=== PATIENT | male | born 1965 | race American Indian/Alaskan Native ===

== ENCOUNTER 2017-07-04 22:28 | Emergency (ER) | payer SELFPAY ==
[2017-07-04 22:49] VITALS: BP 121/74
--- NOTE | 2017-07-05 04:05 | XRay Report ---
FINAL REPORT EXAM: XR SPINE THORACIC 2V HISTORY: fall thoracic pain TECHNIQUE: Four views of the cervical spine were obtained. FINDINGS: There is mild narrowing of the disc in the thoracic spine. There is no evidence of fracture. The alignment appears normal. The soft tissues are unremarkable. 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 No evidence of fracture.
--- NOTE | 2017-07-05 05:28 | Emergency Department Report ---
ED Back Pain/Injury HPI - General Chief Complaint: Back Pain/Injury Stated Complaint: BACK PAIN Time Seen by Provider: 07/05/17 05:19 Source: patient Limitations: No Limitations - History of Present Illness Initial Comments: Patient is a 52-year-old -Citizen Of [place] male that presents for low back pain status post slip and twist for 5 days ago patient states he did not fall but did pull a muscle in his back pain described as 5/10 aching pulling exacerbated by movement and bending there is no numbness no tingling or paresthesia no loss of decrease in bowel or bladder function. MD Complaint: back pain, back injury Onset/Timin -: days(s) Similar Symptoms Previously: Yes Place: home Radiation: left leg Severity: moderate Severity scale (0 -10): 4 Quality: aching Consistency: intermittent Improves With: other (rest ) Worsens With: movement, other (bending twisting ) Context: turning/twisting, other (slipped on ice ) Associated Symptoms: denies: confusion, weakness, chest pain, numbness, difficulty walking, cough, difficulty urinating, diaphoresis, incontinence, fever/chills, constipation, headaches, abdominal pain, loss of appetite, malaise , nausea/vomiting, rash, seizure, shortness of breath, syncope - Related Data Home Medications Medication Instructions Recorded Confirmed Last Taken Docusate Sodium [Colace] 100 mg PO BID PRN 06/04/15 06/04/15 Unknown metFORMIN [Glucophage] 500 mg PO BID 06/04/15 06/04/15 Unknown Previous Rx's Medication Instructions Recorded Last Taken Type Ibuprofen [Motrin] 800 mg PO Q8HR PRN #60 tablet 06/04/15 Unknown Rx traMADol [Ultram] 50 mg PO Q6HR PRN #14 tablet 06/04/15 Unknown Rx Cyclobenzaprine [Flexeril] 10 mg PO BID PRN #20 tablet 07/05/17 Unknown Rx Menthol/Camphor [[place] 1 applicatio TP BID PRN #1 tube 07/05/17 Unknown Rx Ointment] Naproxen 500 mg PO BID PRN #30 tablet 07/05/17 Unknown Rx Allergies Allergy/AdvReac Type Severity Reaction Status Date / Time No Known Allergies Allergy Unverified 06/04/15 19:53 ED Review of Systems ROS: Stated complaint: BACK PAIN Other details as noted in HPI Constitutional: denies: chills, fever Eyes: denies: eye pain, eye discharge, vision change ENT: denies: ear pain, throat pain Respiratory: denies: cough, shortness of breath, wheezing Cardiovascular: denies: chest pain, palpitations Endocrine: no symptoms reported Gastrointestinal: denies: abdominal pain, nausea, diarrhea Genitourinary: denies: urgency, dysuria Musculoskeletal: back pain, arthralgia, myalgia. denies: joint swelling Skin: denies: rash, lesions Neurological: denies: headache, weakness, paresthesias Psychiatric: denies: anxiety, depression Hematological/Lymphatic: denies: easy bleeding, easy bruising ED Past Medical Hx - Past Medical History Hx Diabetes: Yes - Surgical History Additional Surgical History: hernia, left ankle and hand - Social History Smoking Status: Never Smoker Substance Use Type: Alcohol - Medications Home Medications: Home Medications Medication Instructions Recorded Confirmed Last Taken Type Docusate Sodium [Colace] 100 mg PO BID PRN 06/04/15 06/04/15 Unknown History Ibuprofen [Motrin] 800 mg PO Q8HR PRN #60 tablet 06/04/15 Unknown Rx metFORMIN [Glucophage] 500 mg PO BID 06/04/15 06/04/15 Unknown History traMADol [Ultram] 50 mg PO Q6HR PRN #14 tablet 06/04/15 Unknown Rx Cyclobenzaprine [Flexeril] 10 mg PO BID PRN #20 tablet 07/05/17 Unknown Rx Menthol/Camphor [[place] 1 applicatio TP BID PRN #1 tube 07/05/17 Unknown Rx Ointment] Naproxen 500 mg PO BID PRN #30 tablet 07/05/17 Unknown Rx ED Physical Exam - General Limitations: No Limitations General appearance: alert, in no apparent distress - Head Head exam: Present: atraumatic, normocephalic - Eye Eye exam: Present: normal appearance - ENT ENT exam: Present: mucous membranes moist - Neck Neck exam: Present: normal inspection, full ROM. Absent: tenderness, meningismus, lymphadenopathy, thyromegaly - Expanded Neck Exam Expanded Neck exam: Absent: tenderness, midline deformity, anterior neck swelling, thyroid mass, carotid bruit, tracheal deviation - Respiratory Respiratory exam: Present: normal lung sounds bilaterally. Absent: respiratory distress, wheezes, stridor, chest wall tenderness - Cardiovascular Cardiovascular Exam: Present: regular rate, normal rhythm. Absent: systolic murmur, diastolic murmur, rubs, gallop - GI/Abdominal GI/Abdominal exam: Present: soft, normal bowel sounds. Absent: distended, tenderness, guarding, rebound, rigid, mass, bruit, pulsatile mass, hernia - Rectal Rectal exam: Present: deferred - Extremities Exam Extremities exam: Present: normal inspection, full ROM. Absent: tenderness - Back Exam Back exam: Present: normal inspection, full ROM, tenderness (no posterior vertebral point tenderness mild paraspinus muscle tenderness to deep palpation rom intact there is no weakness no numbness no tingling pos straight let left ) , muscle spasm. Absent: CVA tenderness (R), CVA tenderness (L), paraspinal tenderness, vertebral tenderness, rash noted - Neurological Exam Neurological exam: Present: alert, oriented X3, CN II-XII intact, normal gait, reflexes normal. Absent: motor sensory deficit - Psychiatric Psychiatric exam: Present: normal affect, normal mood - Skin Skin exam: Present: warm, dry, intact, normal color. Absent: rash ED Course Vital Signs 07/04/17 22:45 Temperature 98.1 F Pulse Rate 70 Respiratory 18 Rate Blood Pressure 121/74 O2 Sat by Pulse 98 Oximetry ED Medical Decision Making - Radiology Data Radiology results: report reviewed, image reviewed very mild disc degeneration in thre thoracic spine no evidence of fracture. - Medical Decision Making Patient is a 52-year-old -Citizen Of [place] male that presents for low back pain status post slip and twist for 5 days ago patient states he did not fall but did pull a muscle in his back pain described as 5/10 aching pulling exacerbated by movement and bending there is no numbness no tingling or paresthesia no loss of decrease in bowel or bladder function. pt appears well ambulatory with nad, right lateral thoracic muscular pain to deep palpation , no eccymosis no swelling no deformity, lumbar: milder paraspinus muscle pain to deep palpation pos left straight leg raise 4/10 , xray thoracic spine: mild DJD, chronic no acute fracture or soft tissue abnormality, there is no noted weakness no numbness no paralysis ,pt ambulatory to baseline, plan: nsaids, muscle relaxants moist heat therapy back exercises and follow up with pcp in 2-3 days discussed same with patient , patient verbalized agreement and understanding of discharge plan. Critical care attestation.: If time is entered above; I have spent that time in minutes in the direct care of this critically ill patient, excluding procedure time. ED Disposition Clinical Impression: Thoracic myofascial strain Qualifiers: Encounter type: initial encounter Qualified Code(s): S29.019A - Strain of muscle and tendon of unspecified wall of thorax, initial encounter Disposition: TO HOME OR SELFCARE Is pt being admited?: No Does the pt Need Aspirin: No Condition: Good Instructions: Low Back Strain (ED), Core Strengthening Exercises (GEN) Prescriptions: Cyclobenzaprine [Flexeril] 10 mg PO BID PRN #20 tablet PRN Reason: Muscle Spasm Menthol/Camphor [[place] Ointment] 1 applicatio TP BID PRN #1 tube PRN Reason: Pain Naproxen 500 mg PO BID PRN #30 tablet PRN Reason: Pain Referrals: LALITA GARDNER MD [Staff Physician] - 3-5 Days Forms: Work/School Release Form(ED) Time of Disposition: 05:42
[2017-07-05] MEDS ORDERED: MOTRIN PO ONE ×2 (05:32→05:59)
== END 2017-07-05 05:35 | disposition home or self-care (01) ==
LOC: ED 22:28
DX: S29.019A Strain of muscle and tendon of unspecified wall of thorax, initial encounter (principal); E11.9 Type 2 diabetes mellitus without complications; W00.0XXA Fall on same level due to ice and snow, initial encounter; Y93.89 Activity, other specified; Y99.8 Other external cause status; Y92.009 Unspecified place in unspecified non-institutional (private) residence as the place of occurrence of the external cause
CPT/HCPCS: 72070; 99283

== ENCOUNTER 2020-06-10 04:35 | Emergency (ER) | payer SELFPAY | END 2020-06-10 04:54 | disposition left against medical advice (07) | LOC: ED 04:35 | DX: R41.82 Altered mental status, unspecified (principal); Z53.21 Procedure and treatment not carried out due to patient leaving prior to being seen by health care provider ==